=== PATIENT | male | born 1950 | race African-American/Black ===

== ENCOUNTER 2018-01-23 01:15 | Emergency (ER) | payer OTHER ==
[~2018-01-23] VITALS: Ht 182.9 cm; Wt 89.4 kg
[~2018-01-23 01:15] MED LIST: CRESTOR5 MG; ENALAPRIL MALEA10 MG NGT; NASONEX17 GM NS; PREDNISONE10 MG PO; TENORMIN25 MG PO; XYZAL5 MG PO
[2018-01-23] MEDS ORDERED: NORVASC10 MG (01:27)
[2018-01-23] MEDS ORDERED: ZANTAC300 MG PO (05:32)
[2018-01-23] MEDS ORDERED: CARAFATE1 GM/10 ML PO (05:32)
== END 2018-01-23 05:42 ==
LOC: ER 01:15
DX: K21.9 Gastro-esophageal reflux disease without esophagitis (principal)